=== PATIENT | female | born 1965 | race Caucasian/White ===

== ENCOUNTER 2023-02-11 00:25 | Day surgery (SDC) | payer BC, SELFPAY ==
[2023-01-28 14:49] VITALS: BMI 24.8
--- NOTE | 2023-02-10 17:08 | PM.HPGS ---
History of Present Illness History of Present Illness Consent: Risks, benefits, and alternatives have been discussed and questions answered. Patient agrees to proceed with procedure. Chief complaint: GERD, Dyskinesia of esophagus Narrative: Lexie Mayorga is a 57 year old female Who was referred for EGD. She recently saw ENT physician for ?complaint tightness in lower throat and neck.? This patient recently had a severe episode of coughing after which she had tightness and a sensation that something was caught in her throat located at the area of the upper esophageal sphincter.? She has some significant problems with heartburn issues for which she takes famotidine [id number].?? the sensation of something caught in her throat lasted for a couple of months. She has just recently started gargling with vinegar and it is improving significantly. Review of Systems Review of Systems: All systems reviewed & are unremarkable except as noted in HPI and below PMFSH Family History Family History Father Diabetes mellitus Mother Diabetes mellitus Cerebrovascular accident Sibling Heart disease Social History Social History Smoking status: Never smoker Alcohol intake: current Drinks per week: 3 Alcohol use details: 3/mos. Substance use type: does not use Lack of Transportation: No Lack of Food: Never True Current Housing: I Have Housing Concerned About Future Housing: No Difficulty Paying Gas/Electric Bills: No Difficulty Paying for Meds: No Currently Unemployed: No Education: High School Diploma/GED Difficulty w/ Childcare or Family Care: No Living arrangements: with family Spiritual care concerns: No Meds Home Medications and Allergies Home Medications Medication Instructions Recorded Confirmed Type atenolol 50 mg tablet 50 mg PO DAILY 12/02/22 02/11/23 History famotidine 40 mg tablet 40 mg PO DAILY 12/02/22 02/11/23 History mecobalamin (vitamin B12) 2,500 2,500 mcg PO DAILY 12/02/22 02/11/23 History mcg chewable tablet meloxicam 15 mg tablet 15 mg PO DAILY 12/02/22 02/11/23 History multivitamin 1 tablet PO DAILY 12/02/22 02/11/23 History Allergies Allergy/AdvReac Type Severity Reaction Status Date / Time No Known Allergies Allergy Verified 02/11/23 09:58 Exam Const: General: alert Orientation/consciousness: patient oriented x3 Resp: Auscultation: clear to auscultation bilaterally Cardio: Rhythm: regular rhythm GI: GI Palp: Yes Soft to palpation and No Tenderness to palpation present (GI) Neuro: General: patient oriented x3 Assessment and Plan Assessment and plan (1) Laryngopharyngeal reflux: Code(s): K21.9 - Gastro-esophageal reflux disease without esophagitis Status: Acute Assessment and Plan: EGD with possible biopsy or dilatation or cautery.
[2023-02-11 09:50] VITALS: BP 148/83; PULSE 56; RESP 18; TEMP 36.1; O2SAT 100; BMI 25.6
[2023-02-11] MEDS: LACTATED RINGERS 1,000 ML 150 ML IV CONT (10:12)
--- NOTE | 2023-02-11 10:48 | WPDANESEPPF ---
Anes - Initial Pre Proc Eval Procedure: Operation Date: 02/11/23 11:15 Proposed Procedures p Esophagogastroduodenoscopy - Neal Reeder MD Date/Time: 02/11/23 10:48 Surgeon: Neal Reeder MD Pre Op Diagnosis: GERD, Dyskinesia of esophagus Patient Data Age: 57 Gender: F Height: 1.63 m Weight: 67.8 kg Last Vital Signs Temp 96.9 F L 02/11/23 09:50 Pulse 56 L 02/11/23 09:50 Resp 18 02/11/23 09:50 BP 148/83 H 02/11/23 09:50 Pulse Ox 100 02/11/23 09:50 O2 Del Method Room Air 02/11/23 09:50 Allergies Allergy/AdvReac Type Severity Reaction Status Date / Time No Known Allergies Allergy Verified 02/11/23 09:58 Home Medications Medication Instructions Recorded Confirmed Type atenolol 50 mg tablet 50 mg PO DAILY 12/02/22 02/11/23 History famotidine 40 mg tablet 40 mg PO DAILY 12/02/22 02/11/23 History mecobalamin (vitamin B12) 2,500 2,500 mcg PO DAILY 12/02/22 02/11/23 History mcg chewable tablet meloxicam 15 mg tablet 15 mg PO DAILY 12/02/22 02/11/23 History multivitamin 1 tablet PO DAILY 12/02/22 02/11/23 History Patient hx anesthesia problems: none Family hx anesthesia problems: none Results Review: All pre-operative results and documents have been reviewed as part of the pre-operative evaluation. [facility] Family History Family History Father Diabetes mellitus Mother Diabetes mellitus Cerebrovascular accident Sibling Heart disease Social History Social History Smoking status: Never smoker Alcohol intake: current Drinks per week: 3 Alcohol use details: 3/mos. Substance use type: does not use Lack of Transportation: No Lack of Food: Never True Current Housing: I Have Housing Concerned About Future Housing: No Difficulty Paying Gas/Electric Bills: No Difficulty Paying for Meds: No Currently Unemployed: No Education: High School Diploma/GED Difficulty w/ Childcare or Family Care: No Living arrangements: with family Spiritual care concerns: No Anes - Eval Final PreProcedure Day of Procedure 02/11/23 10:48 Patient weight: normal Heart: regular rate and rhythm Lungs: clear to auscultation Airway: Mallampati scale class II Neurological: alert and oriented Last oral intake: >/= 8 hours ASA classification: II Emergent: no Anesthetic plan: proceed Anesthesia type and monitoring: general GIVS and standard monitoring Results Review: All pre-operative results and documents have been reviewed as part of the pre-operative evaluation. Informed Consent: The patient's anesthetic plan and its attendant risks and benefits were discussed with the patient/family/POA. Questions were solicited and answers provided to the satisfaction of the patient/family/POA.
[2023-02-11] MEDS: SIMETHICONE ORAL SUSPENSION 20 MG/0.3 ML 30 ML BOTTLE 0.6 ML IRRIGATION (11:24)
[2023-02-11 11:33] VITALS: BP 138/87; PULSE 63; RESP 19; O2SAT 100
[2023-02-11 11:43] VITALS: BP 132/78; PULSE 61; RESP 14; O2SAT 100
[2023-02-11 11:53] VITALS: BP 138/82; PULSE 60; RESP 18; O2SAT 100
== END 2023-02-11 11:55 | disposition home or self-care (01) ==
PROVIDERS: PCP Internal Medicine; Visit Provider Internal Medicine Gastroenterology
PROC: 0DJ08ZZ Inspection of Upper Intestinal Tract, Via Natural or Artificial Opening Endoscopic (ICD-10-PCS; CPT 43235; principal; 2023-02-11 11:15)
DX: K21.00 Gastro-esophageal reflux disease with esophagitis, without bleeding (principal); F45.8 Other somatoform disorders
CPT/HCPCS: 43239; 88305; J2704; J7120